=== PATIENT | female | born 1990 | race Two or more races ===

== ENCOUNTER 2025-07-11 23:43 | Emergency (ER) | payer MEDICAID, SELFPAY ==
[2025-07-11 23:44] VITALS: BMI 33.5
[2025-07-12 00:07] VITALS: BP 129/81; PULSE 73; RESP 20; TEMP 37; O2SAT 99
[2025-07-12 00:53] LABS: Strep A Rapid Positive (Negative)
--- NOTE | 2025-07-12 01:13 | PD.EDDENTL ---
ED Dental RME/HPI General Chief complaint: Dental/Oral/Throat Stated complaint: THROAT PAIN Time Seen by Provider: 07/11/25 23:46 Source: patient Arrival date/time: 07/11/25 23:43 This is a case of 35-year-old female with no medical history came into the emergency room due to sore throat today patient have history of strep throat in the past denies any difficulty of swallowing denies any fever or chills denies any cough or congestion persistence of the symptoms this patient decided to sought consult here in the emergency room Limitations: no limitations Related Data Previous Rx's ?Medication ?Instructions ?Recorded cyclobenzaprine 10 mg tablet 10 mg PO TID PRN muscle spasm #30 08/01/24 tabs ibuprofen 600 mg tablet 600 mg PO TID PRN pain #14 tabs 08/01/24 lidocaine 5 % topical patch 1 patch topical QDAY #15 ea 08/01/24 amoxicillin 875 mg-potassium 1 tab PO BID #20 tabs 07/12/25 clavulanate 125 mg tablet lidocaine HCl 2 % mucosal solution 10 ml PO Q4HR PRN sorethroat #100 07/12/25 (Lidocaine Viscous) mL prednisone 20 mg tablet See Taper PO QDAY 5 days #5 tabs 07/12/25 Allergies Allergy/AdvReac Type Severity Reaction Status Date / Time No Known Allergies Allergy Verified 07/11/25 23:48 Review of Systems Review of Systems Systems Reviewed: All systems reviewed, normal except as documented Constitutional Constitutional: Reports system reviewed and no additional complaints, except as documented and Reports as per HPI Cardiovascular Cardiovascular: Reports system reviewed and no additional complaints, except as documented and Reports as per HPI Respiratory Respiratory: Reports system reviewed and no additional complaints, except as documented and Reports as per HPI Gastrointestinal Gastrointestinal: Reports system reviewed and no additional complaints, except as documented and Reports as per HPI Musculoskeletal Musculoskeletal: Reports system reviewed and no additional complaints, except as documented and Reports as per HPI Neurologic Neurologic: Reports system reviewed and no additional complaints, except as documented and Reports as per HPI Past Medical History Past Medical History NEUROLOGIC: Negative Neurological Disorders or Seizures CARDIAC: Negative Cardiac Disorders or Congestive Heart Failure RESPIRATORY: Negative Chronic Obstructive Pulmonary Disease (COPD) GASTROINTESTINAL: Positive Gastrointestinal Disorders and Gall Bladder Disease (LAP JENNY 2017); Negative Hepatitis GENITOURINARY: Negative Genitourinary Disorders or Renal Disease REPRODUCTIVE: Positive Previous Pregnancies (9); Negative Breast Cancer MUSCULOSKELETAL: Positive Musculoskeletal Disorders (LEFT KNEE TORN MENISCUS) ENDOCRINE: Negative Endocrine Disorders, Diabetes Mellitus Type 1 or Diabetes Mellitus Type 2 HEMATOLOGIC: Negative Blood Disorders, Anemia or Clotting Problems PSYCHO/SOCIAL: Positive Depression OTHER HISTORY: Negative Hospitalization, Autoimmune Disease, Falls, Blood Transfusions, Blood Transfusion Reaction, Anesthesia Reactions, Organ Transplant, MRSA, VRSA, Human Immunodeficiency Virus (HIV), Chicken Pox, Measles, Mumps, Rubella (Japanese Measles), Pertussis, Clostridium Difficile, Cancer or Breast Cancer Family History FAMILY HISTORY: Negative Family Psychiatric Problems, Family Respiratory Disorders, Family Cardiac Disorders, Family Gastrointestinal Problems, Family Cancer, Family Surgery or Family Anesthesia Reaction Surgical History SURGICAL: Positive Abdominal Surgery; Negative Cardiac Surgery, Endocrine Surgery, Ear Surgery, Nephrectomy, Joint Replacement, Neurologic Surgery, Brain Shunt, Mastectomy or Organ Transplant Social History SMOKING STATUS: Never smoker ED Exam General Limitations: Present no limitations General appearance: Present alert, in no apparent distress and other (Patient is awake alert oriented not in distress nontoxic looking well-hydrated well-nourished) Head Head exam: Present atraumatic, normocephalic and normal inspection Eye Eye exam: Present normal appearance, PERRL and EOMI ENT ENT exam: Present normal exam, normal oropharynx, mucous membranes moist and other (Patient nose and ear exam were normal pharynx were red bilateral tonsils were red swelling with exudate no peritonsillar abscess no drooling of saliva no muffled voice no hot potato voice no hoarseness of voice) Neck Neck exam: Present normal inspection, full ROM and trachea midline; Absent tenderness, meningismus, lymphadenopathy or thyromegaly Chest Chest inspection: Present normal inspection and symmetric chest wall rise; Absent tenderness Respiratory Respiratory exam: Present normal lung sounds bilaterally; Absent respiratory distress, wheezes, stridor, accessory muscle use or prolonged expiratory phase Cardiovascular Cardiovascular exam: Present regular rate, normal rhythm and normal heart sounds; Absent bradycardia, tachycardia, irregular rhythm, systolic murmur or diastolic murmur Abdominal Exam Abdominal exam: Present soft and normal bowel sounds Extremities Exam Extremities exam: Present normal inspection and full ROM Back Exam Back exam: Present normal inspection and full ROM Neurological Exam Neurological exam: Present alert, oriented X3, CN II-XII intact, normal gait and reflexes normal; Absent motor sensory deficit Psychiatric Psychiatric exam: Present normal affect and normal mood Skin Skin exam: Present warm, dry, intact and normal color Course Quality Measures none Orders Category Date Time Status Strep A Rapid Stat Lab 07/12/25 00:39 Completed Dexamethasone Inj [Decadron Inj] Med 07/12/25 01:08 Discontinued 10 mg IM X1 ONE cefTRIAXone [Rocephin] 1,000 mg Med 07/12/25 01:08 Discontinued Lidocaine 1% 20 ml [Xylocaine 1% 20 ML] 2.1 ml IM X1 Vital Signs Vital signs: Vital Signs Temperature 98.6 F 07/12/25 00:07 Pulse Rate 73 07/12/25 00:07 Respiratory Rate 20 07/12/25 00:07 Blood Pressure 129/81 07/12/25 00:07 Pulse Oximetry (%) 99 07/12/25 00:07 Oxygen Delivery Method Room Air 07/12/25 00:07 Oxygen saturation is 99% in room air Dental / Oral MDM Narrative MDM Narrative:: This is a case of 35-year-old female with no medical history came into the emergency room due to sore throat today patient have history of strep throat in the past denies any difficulty of swallowing denies any fever or chills denies any cough or congestion persistence of the symptoms this patient decided to sought consult here in the emergency room physical examination patient is awake alert oriented not in distress nontoxic looking well-hydrated well-nourished HEENT exam were as follows patient nose and ears were normal pharynx were red bilateral tonsils were swollen red with exudate no peritonsillar abscess no drooling of saliva patient can speak full sentences no muffled voice no hoarseness of voice no hot potato voice Centor criteria is 1/4 based on my physical examination and history patient symptoms positive for strep throat rapid strep was positive patient was given ceftriaxone IM here in the emergency room and dexamethasone patient was prescribed with Augmentin for strep throat lidocaine viscous for sore throat and prednisone patient will follow-up with PCP in 2 days for reevaluation recurrence persistent worsening symptoms return to the emergency room immediately or call 911 Patient was discharged with comfortable condition walking with stable gait. Patient verbalized no further complains explained diagnosis and answered patient question. Patient is comfortable with the proposed management plan including the need to follow up with his/her primary care physician and any specialist if applicable Discussed patient for any urgent condition or worsening sx, He/She needed to go to emergency room immediately or call 911. Patient acknowledge the responsibility to follow up as instructed and to monitor her/his symptoms. For any persistence of the symptoms for more than 3-5 days return precaution advised. Discussed the result of the test and was given printed discharge instruction Patient data External records reviewed:: [facility] previous records Clinical information provided by:: patient Social determinants that could affect healthcare access:: none Patient has the following chronic illnesses:: None How is presenting disease/condition affected by chronic disease/condition?: no chronic disease Evaluation data The following diagnostics were reviewed and interpreted by me:: lab results Lab and/or radiology exams considered but not ordered:: Reviewed Interpretation Summary: Reviewed Medications / Prescriptions Medications or Prescriptions considered but not ordered:: Given Medication administrations:: Medication Administration History Discontinued Medications Ceftriaxone Sodium 1,000 mg/ (Lidocaine HCl 2.1 ml) 0 mg IM X1 ONE Stop: 07/12/25 01:09 Dexamethasone Sodium Phosphate (Dexamethasone Sod Phos Inj 10 Mg/Ml Vial) 10 mg IM X1 ONE Stop: 07/12/25 01:09 Given Consultations Consultation(s) initiated? (list below): No Diagnosis Dental Differential Diagnosis: dental abscess Most likely diagnosis given after review of the tests above:: Strep throat Admission Indicated Admission indicated?: not indicated Explain why admission is indicated or not indicated:: Not indicated Admission Request Was there a request for admission?: No Admission Attestation Admission request attestation: Not indicated Disposition Plan Disposition Plan: Discharge Discharge Attestation Discharge Attestation: The patient and all family members were given an opportunity to ask questions and understood the discharge instructions. Discharge instructions specifically effects, indications for sooner follow up or return to the emergency department, and the expected course of current diagnosis. Patient condition: Stable Discharge Plan Plan Patient Disposition: HOME (Self Care) Patient condition on transfer: Stable Prescriptions/Referrals Prescriptions/Med Rec: New amoxicillin-pot clavulanate 875-125 mg tablet 1 tab PO BID Qty: 20 0RF prednisone 20 mg tablet See Taper PO QDAY 5 Days Qty: 5 0RF Taper: Prednisone Taper 20 mg DAILY for 2 Days and 0 Hour 10 mg DAILY for 2 Days and 0 Hour 5 mg DAILY for 7 Days and 0 Hour lidocaine HCl [Lidocaine Viscous] 2 % solution 10 ml PO Q4HR PRN (Reason: sorethroat) Qty: 100 0RF No Action cyclobenzaprine 10 mg tablet 10 mg PO TID PRN (Reason: muscle spasm) Qty: 30 0RF ibuprofen 600 mg tablet 600 mg PO TID PRN (Reason: pain) Qty: 14 0RF lidocaine 5 % adhesive patch,medicated 1 patch topical QDAY Qty: 15 0RF Rx Instructions: leave on most painful area for up to 12 hrs Referrals: No Primary/Family,Physician [Primary Care Provider] - In 1 week Problem List Clinical Impression: Strep tonsillitis Patient/Caregiver Discharge Instructions Education Materials: ED Pharyngitis, Strep (Confirmed) Additional Instructions: Follow-up with your primary care physician in 2 days for reevaluation worsening symptoms or any emergent concern call 911 or go to the nearest emergency room take your medication as directed finish the course open antibiotic warm saline gargle keep hydrated Print Language: Spanish Stand Alone Forms: [facility] Award Info., Patient Portal Info Letter PA/FORGING DIE SINKER Supervising Physician PA/FORGING DIE SINKER Supervising Physician: Dr. Katheryn Zapata
== END 2025-07-12 01:22 | disposition home or self-care (01) ==
PROVIDERS: Nurse Practitioner Family; Emergency Provider Emergency Medicine
DX: J03.00 Acute streptococcal tonsillitis, unspecified (principal)
CPT/HCPCS: 87651; 99283

== ENCOUNTER → 2025-09-13 | Outpatient (CLI) | payer MEDICAID, SELFPAY ==
--- NOTE | 2025-09-13 09:00 | XR_ITS ---
EXAMINATION: MRI brain post intravenous contrast TECHNIQUE: Multiple axial sagittal and coronal MRI brain images post intravenous administration 17 cc gadolinium INDICATIONS: Headaches dizziness numbness in the fingers this year FINDINGS: No mass effect upon the ventricular system No effacement cortical sulcal markings Pituitary is not enlarged Fourth ventricle midline No tonsillar herniation Ventricles are normal in size and configuration IMPRESSION: No abnormal enhancing cerebellar or cerebral lesions Brain MRI follow-up without contrast would best assess for demyelinating disease, as clinically warranted
== END | disposition home or self-care (01) ==
LOC: SMRI 08:45
PROVIDERS: PCP Physician Assistant; Referring Provider Physician Assistant; Visit Provider Physician Assistant
DX: R51.9 Headache, unspecified (principal)
CPT/HCPCS: 70552; A9577

== ENCOUNTER 2025-10-18 15:00 | Outpatient (RCR) | payer MEDICAID, SELFPAY ==
--- NOTE | 2025-09-29 10:43 | PT.OIERPT ---
PT OP Initial Eval Patient Information Outpatient Physical Therapy Treatment Date: 09/29/25 Visit Reasons: RT SHOULDER Medical Diagnosis: Right Shoulder Pain Treatment Dx #1: Right Shoulder Pain Start of Care: 09/29/25 Date of Onset: 1 year ago Smoking Status Smoking Status: Never smoker Initial Assessment Subjective: Pt is a 35 y/o female reports of chronic right shoulder pain (10) worsening ~ 1 year ago. Pt's xray negative no MRI so far. Pt has been treated by the chiropractor without success. Pt notice popping and a knots in the back of the shoulder. Pt has limitation with sleeping, lifting, chores, self care, cooking, cleaning, and performing recreational activities. Pt has not seen her PCP for her right shoulder concerns. Objective: Right Shoulder AROM: all motions are WFL with end range pain into external rotation and internal rotation Right Shoulder MMTs: grossly 4-/5 Right Scapula MMTs: grossly 3/5 Posture: left trunk sidebend, shoulder elevation R>L Palpation: TTP right medial border of the scapula Special Test +) speed's (+) active chahal's Assessment: Pt demonstrate right shoulder pain leading to difficulty with ADLs. Pt will attempt physical therapy if pain persist Pt will be refer back to provider for further consultation. Short Term and Prison Goals 1) Increase right shoulder AROM WNL in 6 wks to be able to perform overhead motions 2) Decrease right shoulder pain to 2/10 in 6 wks to be able to perform lifting activities 3) Increase right shoulder MMTs grossly to 4/5 in 6 wks to be able to perform recreational activities 4) Increase right scapula MMTs grossly to 3+/5 in 6 wks to be able to perform chores 5) Indep with HEP Treatment Plan 1) Manual Therapy 2) Therapeutic Activities 3) Therapeutic Exercises 4) Modalities (ice, heat) Frequency and Duration: 2 x wk for 6 wks Certification Dates: 09/29/25 to 12/28/25 Procedure Charges OP PT Eval Mod Complex 30 minutes: Yes
--- NOTE | 2025-10-04 11:33 | PT.ODAYNRPT ---
PT Outpatient Daily Note OP Daily Note Outpatient Physical Therapy Treatment Date: 10/04/25 Visit Reasons: RT SHOULDER Subjective: Pt's shoulder continues to hurt even under the armpit. Pt made another appt wot screen out her mid back further. Objective: Please see flow chart for list of ther ex performed Assessment: tolerate exercises with minimal pain. Pt reports of general muscle soreness around the shoulder. Post ice helped with the pain and soreness Plan: Continue with PT Length of Time (minutes) of Treatment: 30 Minutes Procedure Charges Therapeutic Exercise 30 minutes: Yes
--- NOTE | 2025-10-18 15:51 | PT.ODAYNRPT ---
PT Outpatient Daily Note OP Daily Note Outpatient Physical Therapy Treatment Date: 10/18/25 Visit Reasons: RT SHOULDER Subjective: Pt reports R shoulder is moving better, still has occasional pain but not at this time. Objective: Please see flow sheet for ther ex list. Assessment: No pain to report allowing of intervention progression. Plan: Continue with pOC. Length of Time (minutes) of Treatment: 30 Minutes Procedure Charges Therapeutic Exercise 30 minutes: Yes
--- NOTE | 2025-11-04 08:13 | PT.ODS1RPT ---
PT OP Progress/Discharge Note Date of Service: 11/04/25 Progress Note/DC Note Progress Note/Discharge Note: DC Note Patient Information Visit Reasons: RT SHOULDER Status Assessment: Pt has been seen for 3 visits (eval + 2 visits) inconsistently. Pt last treated on . Pt no showed 10/06 and 10/26 appt. At this time Pt will be d/c from care due to authorization 10/27/25. Pt did not meet set goals in therapy; thank you for your referrals
== END 2025-10-27 23:59 | disposition home or self-care (01) ==
LOC: CPTX 15:00
PROVIDERS: PCP Chiropractor; Referring Provider Chiropractor; Visit Provider Chiropractor
DX: M25.511 Pain in right shoulder (principal); G89.29 Other chronic pain
CPT/HCPCS: 97110; 97162